=== PATIENT | male | born 1935 | race Caucasian/White ===

== ENCOUNTER → 2020-10-12 | Outpatient (CLI) | payer MEDICARE ==
[~2020-10-12] MED LIST: DOXYCYCLINE100 M3 PO; PAXIL30 M2 PO; TRIAMTERENE & H1 CAP PO
[2020-10-12 12:25] LABS: BASO % 0.7 % (0.0-1.0); EOS # 0.2 10*3/uL (0.0-0.4); EOS % 3.1 % (1.0-4.0); LYMPH # 0.8 10*3/uL (1.3-4.4); LYMPH % 13.7 % (27.0-41.0); MEAN CELL VOLUME 92.9 fl (80.0-94.0); MEAN CORPUSCULAR HGB 30.1 pg (27.0-31.0); MEAN CORPUSCULAR HGB CONC 32.4 g/dl (33.0-37.0); MEAN PLATELET VOLUME 9.3 fl (9.6-12.3); MONO # 0.5 10*3/uL (0.1-1.0); MONO % 8.7 % (3.0-9.0); NEUT # 4.5 10*3/uL (2.3-7.9); NEUT % 73.5 % (47.0-73.0); PLATELET COUNT AUTOMATED 195 10*3/uL (130-400); RED BLOOD COUNT 4.95 10*6/uL (4.50-5.90); RED CELL DISTRI WIDTH 13.8 % (0-14.5); WHITE BLOOD COUNT 6.1 10*3/uL (4.8-10.8)
[2020-10-12 13:31] LABS: POTASSIUM 3.5 mmol/L (3.5-5.1)
== END | disposition home or self-care (01) ==
LOC: LAB 12:07
PROVIDERS: ATTEND Podiatrist
DX: Z01.818 Encounter for other preprocedural examination (principal); Z20.822 Contact with and (suspected) exposure to COVID-19

== ENCOUNTER → 2020-10-17 | Day surgery (SDC) | payer MEDICARE ==
[~2020-10-17] VITALS: Ht 182.8 cm; Wt 90.7 kg
[2020-10-17 12:30] VITALS: BP 147/67
== END | disposition home or self-care (01) ==
LOC: SDC 10-05 10:15
PROVIDERS: ATTEND Podiatrist
DX: I49.9 Cardiac arrhythmia, unspecified (principal); G14 Postpolio syndrome; M19.90 Unspecified osteoarthritis, unspecified site; E78.2 Mixed hyperlipidemia; F41.1 Generalized anxiety disorder; M75.101 Unspecified rotator cuff tear or rupture of right shoulder, not specified as traumatic; I10 Essential (primary) hypertension; Z86.14 Personal history of Methicillin resistant Staphylococcus aureus infection; F32.9 Major depressive disorder, single episode, unspecified; Z79.899 Other long term (current) drug therapy; Z53.8 Procedure and treatment not carried out for other reasons

== ENCOUNTER 2022-05-20 05:56 | Emergency (ER) | payer MEDICARE ==
[~2022-05-20] VITALS: Ht 177.8 cm; Wt 86.2 kg
[2022-05-20 06:21] LABS: BASO % 0.4 % (0.0-1.0); EOS # 0.1 10*3/uL (0.0-0.4); EOS % 3.1 % (1.0-4.0); HEMATOCRIT 42.6 % (42.0-52.0); LYMPH # 0.5 10*3/uL (1.3-4.4); LYMPH % 11.4 % (27.0-41.0); MEAN CELL VOLUME 95.1 fl (80.0-94.0); MEAN CORPUSCULAR HGB 30.1 pg (27.0-31.0); MEAN CORPUSCULAR HGB CONC 31.7 g/dl (33.0-37.0); MEAN PLATELET VOLUME 9.1 fl (9.6-12.3); MONO # 0.4 10*3/uL (0.1-1.0); MONO % 8.9 % (3.0-9.0); NEUT # 3.4 10*3/uL (2.3-7.9); NEUT % 75.8 % (47.0-73.0); PLATELET COUNT AUTOMATED 162 10*3/uL (130-400); RED BLOOD COUNT 4.48 10*6/uL (4.50-5.90); RED CELL DISTRI WIDTH 13.9 % (0-14.5); WHITE BLOOD COUNT 4.5 10*3/uL (4.8-10.8)
[2022-05-20 06:37] LABS: ALKALINE PHOSPHATASE 172 U/L (46-116); BUN 15 mg/dl (9-23); CHLORIDE 102 mmol/L (98-107); POTASSIUM 3.6 mmol/L (3.4-5.1); SGPT/ALT 20 U/L (10-49); TOTAL PROTEIN 6.9 gm/dL (6.0-8.0)
[2022-05-20 09:52] LABS: BILIRUBIN Negative (Negative); BLOOD Negative (Negative); CLARITY Clear (Clear); COLOR Yellow (Yellow); GLUCOSE Negative (Negative); KETONE Negative (Negative); LEUKO ESTERASE Trace (Negative); NITRITE Negative (Negative); PH 7.5 (4.5-8.0)
[2022-05-20 10:38] LABS: BACTERIA TRACE; RBC 0-2 rbc/hpf (0-2)
== END 2022-05-20 11:00 | disposition home or self-care (01) ==
LOC: ED 05:56
PROVIDERS: Internal Medicine
DX: R30.0 Dysuria (principal); Z98.890 Other specified postprocedural states

== ENCOUNTER 2023-07-30 09:47 | Emergency (ER) | payer MEDICARE ==
[~2023-07-30] VITALS: Ht 180.3 cm; Wt 83.5 kg
[2023-07-30] MEDS ORDERED: ACETAMINOPHEN 325 MG TAB PO ONE (10:30)
== END 2023-07-30 11:58 | disposition home or self-care (01) ==
LOC: ED 09:47
DX: S52.591A Other fractures of lower end of right radius, initial encounter for closed fracture (principal); F41.9 Anxiety disorder, unspecified; F32.A Depression, unspecified; Z98.890 Other specified postprocedural states; W19.XXXA Unspecified fall, initial encounter; Y93.89 Activity, other specified; Y92.009 Unspecified place in unspecified non-institutional (private) residence as the place of occurrence of the external cause; Y99.8 Other external cause status